=== PATIENT | female | born 1995 | race Caucasian/White ===

== ENCOUNTER 2017-03-17 08:56 | Emergency (ER) | payer OTHER ==
[2017-03-17 09:23] VITALS: BP 125/77
--- NOTE | 2017-03-17 09:54 | UC ---
Complaint Female HPI - HPI Summary HPI Summary: 21 female presents with complaints of urinary frequency, pain, urgency and noticing blood in urine since Friday03/14/17. Patient states the symptoms have improved slightly as there has been less blood in her urine. She denies fever/ chills and vomiting. Admits to some lower abdominal discomfort when her bladder is really full or empty. She also admits to lower right side back/kidney pain that began yesterday. Patient states she has had kidney infections often in the past however denies hospitalization. She has not taken any medications. Admits to nausea however she has been nauseous consistently for the past month or two. Denies known PMHx. Also complains of a separate issue of bruising and epistaxis without known trauma or injury for the past month and a half. Bruising occurs on arms and legs and are not painful. Denies sexual activity, and genitalia symptoms of itching, redness or discharge. No other complaints at this time. Not on OCP. - History Of Current Complaint Chief Complaint: UCGU Stated Complaint: URINARY COMPLAINT Time Seen by Provider: 03/17/17 09:43 Hx Obtained From: Patient Hx Last Menstrual Period: 03/04/17 ?: No Onset/Duration: Sudden Onset, Lasting Days - 3 Timing: Intermittent - upon urination Severity Initially: Moderate Severity Currently: Mild Pain Intensity: 6 Pain Scale Used: 0-10 Numeric - pressure/ache Radiates to: right back/kidney Character: Burning - pressure, ache Aggravating Factor(s): Movement, Urination Alleviating Factor(s): Nothing Associated Signs And Symptoms: Positive: Back Pain, Nausea. Negative: Fever, Vaginal Bleeding/Discharge, Vaginal Discharge, Vomiting(# Of Episodes =), Genital Swelling, Genital Blisters - Allergies/Home Medications Allergies/Adverse Reactions: Allergies Allergy/AdvReac Type Severity Reaction Status Date / Time Adhesive Tape Allergy Mild Rash Verified 08/06/14 16:48 Latex Allergy Itching Verified 08/06/14 16:48 wearing vinyl gloves Allergy Rash Uncoded 08/06/14 16:48 PMH/Surg Hx/FS Hx/Imm Hx - Additional Past Medical History Additional PMH: Denies known PMHx. No diabetes, HTN or asthma - Surgical History Surgical History: Yes Surgery Procedure, Year, and Place: appy 11/17, T&A - Family History Known Family History: Positive: None - Social History Alcohol Use: Occasionally Substance Use Type: None Smoking Status (MU): Never Smoked Tobacco - Immunization History Vaccination Up to Date: Yes Review of Systems Constitutional: Negative Skin: Bruising Respiratory: Negative Cardiovascular: Negative Gastrointestinal: Abdominal Pain - nausea, pressure, ache "suprapubic, when bladder is full and empty" Genitourinary: Dysuria, Hematuria, Frequency, Urgency Musculoskeletal: Negative All Other Systems Reviewed And Are Negative: Yes Physical Exam Triage Information Reviewed: Yes Appearance: Well-Appearing, No Pain Distress, Well-Nourished Vital Signs: Initial Vital Signs Temp 98.8 F 03/17/17 09:15 Pulse 75 03/17/17 09:15 Resp 14 03/17/17 09:15 BP 125/77 03/17/17 09:15 Pulse Ox 100 03/17/17 09:15 afebrile and normal vital signs, no concern for sepsis Vital Signs Reviewed: Yes Eyes: Positive: Conjunctiva Clear ENT: Positive: Normal ENT inspection, Hearing grossly normal Neck: Positive: Supple, Nontender, No Lymphadenopathy Respiratory: Positive: Chest non-tender, Lungs clear, Normal breath sounds, No respiratory distress, No accessory muscle use. Negative: Rhonchi, Stridor, Wheezing Cardiovascular: Positive: RRR, No Murmur, Pulses Normal, Brisk Capillary Refill Abdomen Description: Positive: Nontender, No Organomegaly, Soft, CVA Tenderness (R). Negative: Bruit, CVA Tenderness (L), Distended, Guarding, McBurney's Point Tenderness, Peritoneal Signs, Pulsatile Mass Bowel Sounds: Positive: Present Musculoskeletal: Positive: Strength Intact, ROM Intact, No Edema Neurological: Positive: Alert Psychological Exam: Normal Skin: Positive: Other - ecchymosis noted on inner thighs and inside of left upper arm. different sizes, no apparent injury or trauma. no other obvious deformity or abnormal findings noted. Complaint Female Dx - Course Course Of Treatment: urinalysis obtained and positive for blood, leuk esterase, however no nitrates. due to U/A results, PE findings, HPI and vital signs patient will be treated out patient for UTI/ possible kidney infection with Cipro. Patient does have history of kidney infections, will wait for culture results. discussed importance of having blood work drawn at PCP to follow up on bruising and epistaxis as we are unable to obtain here. Educated on possible causes. Follow up with PCP and make an appointment to be seen within the 1-2 weeks. Also re-check UTI symptoms. Given pyridium for discomfort. Aware of worsening signs and symptoms to watch out for as kidney infections can worsen. - Differential Dx/Diagnosis Differential Diagnosis/HQI/PQRI: , Ureteral Stone, Urinary Tract Infection, Other - pyelonephritis Provider Diagnoses: UTI, kidney infection, bruising of unknown etiology Discharge - Discharge Plan Condition: Stable Disposition: HOME Prescriptions: Ciprofloxacin TAB* [Cipro 500 MG TAB*] 500 mg PO BID #14 tab Phenazopyridine 200 mg (NF) [Pyridium 200 MG tab] 200 mg PO TID #6 tab Patient Education Materials: Urinary Tract Infection in Women (ED), Kidney Infection (ED) Referrals: Shayy Cheatham NP [Primary Care Provider] - Additional Instructions: Take prescribed antibiotic as directed. Recommend taking with food If there is a better antibiotic for your infection, you will be called and it will be changed pending your culture results in the next 2 days. Take Pyridium for bladder discomfort. Recommend taking after meals. This may make your urine turn an orange, neon color, this is normal. Drink PLENTY of fluids and maintain good hygiene. Avoid swimming until symptoms improve. Follow up with PCP within the next week to follow up on bruising and nose bleeds and to re-check urinary symptoms. If symptoms worsen such as fever/chills, nausea/vomiting, increasing abdominal or back pain, worsening symptoms and generalized feeling ill please seek medical attention promptly. .
== END 2017-03-17 10:33 | disposition home or self-care (01) ==
LOC: UCCORT 08:56
DX: N39.0 Urinary tract infection, site not specified (principal); R31.9 Hematuria, unspecified; R23.3 Spontaneous ecchymoses; R04.0 Epistaxis; R11.0 Nausea; Z91.040 Latex allergy status; Z91.048 Other nonmedicinal substance allergy status
CPT/HCPCS: 81003; 87077; 87086; 87186; 99212; G0463

== ENCOUNTER 2017-03-25 09:10 | Emergency (ER) | payer OTHER ==
--- NOTE | 2017-03-25 09:27 | UC ---
Upper Extremity HPI - HPI Summary HPI Summary: right forearm pain x 2 days + injury to right forearm , hit her right forearm to the boat + pain and swelling of the right forearm - History of Current Complaint Chief Complaint: UCUpperExtremity Stated Complaint: RIGHT ARM INJURY Time Seen by Provider: 03/25/17 09:20 Hx Obtained From: Patient Hx Last Menstrual Period: 03/04/17 ?: No Onset/Duration: Sudden Onset, Lasting Days - 2, Still Present Severity Initially: Moderate Severity Currently: Severe Character: Aching, Throbbing Aggravating Factor(s): Movement, Lifting, Flexion, Extension Alleviating Factor(s): Nothing Associated Signs And Symptoms: Positive: Swelling, Bruising, Weakness. Negative : Redness - Allergies/Home Medications Allergies/Adverse Reactions: Allergies Allergy/AdvReac Type Severity Reaction Status Date / Time Adhesive Tape Allergy Mild Rash Verified 03/25/17 09:21 Latex Allergy Itching Verified 03/25/17 09:21 wearing vinyl gloves Allergy Rash Uncoded 03/25/17 09:21 PMH/Surg Hx/FS Hx/Imm Hx Previously Healthy: Yes - Surgical History Surgical History: Yes Surgery Procedure, Year, and Place: appy 11/17, T&A - Family History Known Family History: Positive: None Negative: Diabetes - Social History Alcohol Use: Occasionally Substance Use Type: None Smoking Status (MU): Never Smoked Tobacco - Immunization History Vaccination Up to Date: Yes Review of Systems Constitutional: Negative Skin: Negative Eyes: Negative ENT: Negative Respiratory: Negative All Other Systems Reviewed And Are Negative: Yes Physical Exam Triage Information Reviewed: Yes Appearance: Well-Appearing, No Pain Distress, Well-Nourished Vital Signs Reviewed: Yes Eyes: Positive: Conjunctiva Clear ENT: Positive: Normal ENT inspection, Hearing grossly normal, Pharynx normal Neck: Positive: Supple, Nontender, No Lymphadenopathy Respiratory: Positive: Chest non-tender, Lungs clear, Normal breath sounds Cardiovascular: Positive: RRR, No Murmur, Pulses Normal Abdominal Exam: Normal Musculoskeletal: Positive: Other: - right foream : + swelling, + ecchymosis, 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
[2017-03-25 09:31] VITALS: BP 124/73
== END 2017-03-25 09:39 | disposition home or self-care (01) ==
LOC: UCCORT 09:10
DX: S50.11XA Contusion of right forearm, initial encounter (principal); W22.8XXA Striking against or struck by other objects, initial encounter; Y93.9 Activity, unspecified; Y92.9 Unspecified place or not applicable; Z91.040 Latex allergy status; Z91.048 Other nonmedicinal substance allergy status
CPT/HCPCS: 99212; G0463